=== PATIENT | male | born 1960 | race American Indian/Alaskan Native ===

== ENCOUNTER 2021-04-30 07:30 | Day surgery (SDC) | payer BC ==
[~2021-04-30 07:30] MED LIST: LACTATED RINGERS 1,000 ML IV SCH; MIDAZOLAM 2 MG/2 ML INJ IV NR
[2021-04-30] MEDS ORDERED: ceFAZolin/STERILE WATER 2 GM/20 ML SYRINGE IV NR (08:30)
--- NOTE | 2021-04-30 08:31 | Anesthesia Consultation ---
Anesthesia Consult and Med Hx Date of service: 04/30/21 - Airway Anesthetic Teeth Evaluation: Good, Partials (upper) ROM Head & Neck: Adequate Mental/Hyoid Distance: Adequate Mallampati Class: Class III Intubation Access Assessment: Possibly Difficult - Pre-Operative Health Status ASA Pre-Surgery Classification: ASA2 Proposed Anesthetic Plan: General - Pulmonary Hx Smoking: No Hx Respiratory Symptoms: No - Cardiovascular System Hx Hypertension: No - Central Nervous System CVA: No - Endocrine Hx Renal Disease: No Hx Liver Disease: No Hx Insulin Dependent Diabetes: No Hx Non-Insulin Dependent Diabetes: No Hx Thyroid Disease: No - Other Systems Hx Alcohol Use: Yes (SOBER X 18 YRS) Hx Substance Use: Yes (SOBER X 18 YRS) - Additional Comments Anesthesia Medical History Comments: No hx anesthetic complications.
--- NOTE | 2021-04-30 08:31 | Anesthesia Day of Surgery ---
Anesthesia Day of Surgery - Day of Surgery Patient Examined: Yes Patient H&P Reviewed: Yes Patient is NPO: Yes
[2021-04-30] MEDS ORDERED: ceFAZolin/Water 2 GM/20 ML 2 GM/20 ML SYRINGE IV ONE (08:38)
[2021-04-30] MEDS ORDERED: HYDROcodone/ACETAMINOPHEN 5-325 MG TAB PO PRN (09:00)
[2021-04-30] MEDS ORDERED: fentaNYL 100 MCG/2 ML INJ IV PRN (09:00)
[2021-04-30] MEDS ORDERED: ONDANSETRON 4 MG/2 ML INJ IV PRN (09:00)
[2021-04-30] MEDS ORDERED: fentaNYL 100 MCG/2 ML INJ ONE (09:03)
[2021-04-30] MEDS ORDERED: propofoL 200 MG/20 ML VIAL IV ONE (09:06)
[2021-04-30] MEDS ORDERED: LIDOCAINE MPF (2%) 20 MG/1 ML VIAL 5 ML ONE (09:08)
[2021-04-30] MEDS ORDERED: ONDANSETRON 4 MG/2 ML INJ ONE (09:08)
--- NOTE | 2021-04-30 09:47 | Operative Report ---
DATE OF SURGERY: 04/30/2021 TIME: 09:10 a.m. PREOPERATIVE DIAGNOSIS: Elevated PSA. POSTOPERATIVE DIAGNOSIS: Elevated PSA. OPERATIVE PROCEDURE: Transrectal ultrasound-guided prostate needle biopsy. ATTENDING: Richy Medina MD LINER MACHINE OPERATOR: None. ANESTHESIA: Monitored anesthesia care. SPECIMENS: Prostate needle biopsies. ESTIMATED BLOOD LOSS: 10 mL. DRAINS: None. COMPLICATIONS: None. INDICATIONS FOR PROCEDURE: The patient is a 61-year-old man with a markedly elevated PSA at 21.8. He presents today for prostate needle biopsy. DESCRIPTION OF PROCEDURE IN DETAIL: After induction of suitable anesthesia and proper positioning and preparation in the dorsal lithotomy position, ultrasound probe was placed into the rectum and a prostate ultrasound was performed. The patient had 42.6 gram prostate. The left lobe of his prostate looked asymmetrical compared to the right prostate. There was no obvious extracapsular bulge or extracapsular extension. There was not a median lobe. After the ultrasound was complete, the biopsies were then performed sequentially. A total of 14 biopsies were taken. Extra biopsies were taken from the right base in the left mid. A sextant pattern was employed. Once complete, the ultrasound probe was removed. The patient was then awakened from anesthesia and transported to the recovery room in stable condition. He tolerated the procedure well. He will return in approximately 10-14 days for pathology review. TID: [id number] RECEIPT: [id number] FLOWER/DEEPAK
--- NOTE | 2021-04-30 10:45 | Ultrasound Report ---
Transrectal Ultrasound HISTORY: ELEVATED PSA. TECHNIQUE: Grayscale and color Doppler imaging performed. COMPARISON: None FINDINGS: Transrectal ultrasound guidance was provided by radiology during prostate biopsy by urology . Prostate volume measures 42.6 cc. IMPRESSION: Successful prostate biopsy under ultrasound guidance. Signer Name: Herrera Farfan Jr, MD Signed: 04/30/2021 10:41 AM Workstation Name: [id number]
[2021-04-30 11:13] VITALS: BP 132/68
--- NOTE | 2021-04-30 11:30 | Post Anesthesia Evaluation ---
- Post Anesthesia Evaluation Patient Participated: Yes Airway Patent: Yes Stable Respiratory Function: Yes Nausea/Vomiting: No Temp > 96.8F: Yes Pain Manageable: Yes Adequeate Hydration: Yes Anesthesia Complications: No
== END 2021-04-30 10:50 | disposition home or self-care (01) ==
LOC: OR 07:30
PROVIDERS: ATTEND Urology
DX: R97.20 Elevated prostate specific antigen [PSA] (principal); C61 Malignant neoplasm of prostate; Z72.89 Other problems related to lifestyle; Z98.890 Other specified postprocedural states
CPT/HCPCS: 55700; 76872; 88305; 88344; J0690; J2405; J2704; J3010; J3490; J7120; J2250